=== PATIENT | female | born 1995 | race Two or more races ===

== ENCOUNTER 2021-12-18 16:30 | Observation (INO) | payer MEDICAID, OTHER ==
[~2021-12-18] VITALS: Ht 152.4 cm; Wt 52.2 kg
[2021-12-18] MEDS ORDERED: PREN-96 PO (17:13)
[2021-12-18] MEDS ORDERED: OMEP20TA PO (17:14)
[2021-12-18] MEDS ORDERED: NITR-87 PO (18:11)
== END 2021-12-18 18:34 | disposition home or self-care (01) ==
LOC: LDRP 16:30
PROVIDERS: ADMIT Obstetrics & Gynecology; ATTEND Obstetrics & Gynecology
DX: O62.9 Abnormality of forces of labor, unspecified (principal); O26.892 Other specified pregnancy related conditions, second trimester; R10.2 Pelvic and perineal pain; R10.9 Unspecified abdominal pain; N89.8 Other specified noninflammatory disorders of vagina; O21.2 Late vomiting of pregnancy; Z3A.22 22 weeks gestation of pregnancy
CPT/HCPCS: 59025; 81002; 94760; G0378

== ENCOUNTER 2022-01-07 11:00 | Observation (INO) | payer MEDICAID ==
[~2022-01-07 11:00] MED LIST: NITR-87 PO; OMEP20TA PO; PREN-96 PO
== END 2022-01-07 12:45 | disposition home or self-care (01) ==
LOC: UNDOADMOB 11:00 → LDRP 11:00 → UNDODISOB 12:45
PROVIDERS: ADMIT Obstetrics & Gynecology; ATTEND Obstetrics & Gynecology
DX: O36.8120 Decreased fetal movements, second trimester, not applicable or unspecified (principal); O42.912 Preterm premature rupture of membranes, unspecified as to length of time between rupture and onset of labor, second trimester; Z3A.25 25 weeks gestation of pregnancy
CPT/HCPCS: 59025; 81002; 84112; 94760; G0378; Q0114

== ENCOUNTER 2022-02-22 15:00 | Observation (INO) | payer MEDICAID | END 2022-02-22 16:33 | disposition home or self-care (01) | LOC: UNDOADMOB 15:00 → LDRP 15:00 | PROVIDERS: ADMIT Obstetrics & Gynecology; ATTEND Obstetrics & Gynecology | DX: O36.8130 Decreased fetal movements, third trimester, not applicable or unspecified (principal); O26.893 Other specified pregnancy related conditions, third trimester; R10.9 Unspecified abdominal pain; R11.0 Nausea; O42.913 Preterm premature rupture of membranes, unspecified as to length of time between rupture and onset of labor, third trimester; O34.63 Maternal care for abnormality of vagina, third trimester; N89.8 Other specified noninflammatory disorders of vagina; Z3A.32 32 weeks gestation of pregnancy | CPT/HCPCS: 59025; 76805; 81002; 94760; G0378 ==

== ENCOUNTER 2022-03-03 10:17 | Observation (INO) | payer MEDICAID ==
[~2022-03-03] VITALS: Ht 152.4 cm; Wt 57.2 kg
[2022-03-03] MEDS ORDERED: MICO1KIT6 VA (12:47)
[2022-03-03 13:14] LABS: Alcohol, Urine < 3.0 mg/dL (0-10); Amphetamine Screen, Urine NEGATIVE (NEGATIVE); Barbiturate Scree,Urine NEGATIVE (NEGATIVE); Benzodiazephine Screen, Urine NEGATIVE (NEGATIVE); Cannabinoid Screen, Urine POSITIVE (NEGATIVE); Cocaine Screen, Urine NEGATIVE (NEGATIVE); Phencyclidine Screen, Urine NEGATIVE (NEGATIVE)
[2022-03-03 13:19] LABS: Urine Bacteria FEW /hpf (None Seen); Urine Blood Negative /uL (Negative); Urine Specific Gravity 1.019 (1.001-1.035); Urine WBC 3 /hpf (0 - 5)
[2022-03-03 13:22] LABS: Opiate Scree,Urine NEGATIVE (NEGATIVE)
== END 2022-03-03 13:13 | disposition home or self-care (01) ==
LOC: UNDOADMOB 10:17 → LDRP 10:17
PROVIDERS: ADMIT Obstetrics & Gynecology; ATTEND Obstetrics & Gynecology
DX: O26.853 Spotting complicating pregnancy, third trimester (principal); Z20.822 Contact with and (suspected) exposure to COVID-19; O26.893 Other specified pregnancy related conditions, third trimester; R10.2 Pelvic and perineal pain; O21.2 Late vomiting of pregnancy; O62.9 Abnormality of forces of labor, unspecified; Z3A.33 33 weeks gestation of pregnancy; Z79.899 Other long term (current) drug therapy
CPT/HCPCS: 36415; 59025; 76805; 80307; 81001; 81002; 87086; 87426; 94760; G0378

== ENCOUNTER 2022-09-12 10:16 | Emergency (ER) | payer MEDICAID ==
[~2022-09-12] VITALS: Ht 152.4 cm; Wt 50.6 kg
[~2022-09-12 10:16] MED LIST changes: +MICO1KIT6 VA; -NITR-87 PO; -OMEP20TA PO
[2022-09-12 11:09] LABS: Basophils # (auto) 0.1 10 ^3/uL (0-0.2); Basophils % (auto) 0.9 % (0.0-2.0); Eosinophils # (auto) 0.1 10 ^3/uL (0-0.8); Eosinophils % (auto) 0.8 % (0.0-7.0); Hematocrit 42.6 % (36.0-46.0); Hemoglobin 14.7 g/dL (12.2-16.2); Lymphocytes % (auto) 29.4 % (10.0-50.0); Mean Corpuscular Hemoglobin 31.6 pg (28.0-32.0); Mean Corpuscular Hgb Conc. 34.5 g/dL (32.0-36.0); Mean Corpuscular Volume 91.6 fL (80.0-100.0); Monocytes # (auto) 0.5 10 ^3/uL (0-1.3); Neutrophils # (auto) 4.1 10 ^3/uL (1.6-8.6); Neutrophils % (auto) 61.9 % (37.0-80.0); Nucleated Red Blood Cells % 0.1 %; Red Blood Cells 4.65 10^6/uL (4.0-5.20); Red Cell Distribution Width 13.6 % (11.8-14.3); White Blood Cell 6.7 10^3/uL (4.4-10.8)
[2022-09-12 12:23] LABS: Urine Blood 3+ /uL (Negative); Urine Specific Gravity 1.028 (1.001-1.035)
[2022-09-12] MEDS ORDERED: ACETAMINOPHEN 500 MG TAB PO ONE (16:00)
[2022-09-12 16:40] VITALS: BP 130/90
== END 2022-09-12 16:47 | disposition home or self-care (01) ==
LOC: ER 10:16
DX: N93.8 Other specified abnormal uterine and vaginal bleeding (principal); R10.2 Pelvic and perineal pain; Z98.890 Other specified postprocedural states
CPT/HCPCS: 36415; 76801; 76817; 81003; 84702; 85025

== ENCOUNTER 2022-09-24 17:02 | Emergency (ER) | payer MEDICAID ==
[~2022-09-24] VITALS: Ht 152.4 cm; Wt 50.8 kg
[2022-09-24 17:15] VITALS: BP 124/90
[2022-09-24 18:29] LABS: Urine Bacteria NONE SEEN /hpf (None Seen); Urine Blood 1+ /uL (Negative); Urine Specific Gravity 1.001 (1.001-1.035); Urine WBC <1 /hpf (0 - 5)
[2022-09-24 18:36] LABS: Basophils # (auto) 0.1 10 ^3/uL (0-0.2); Basophils % (auto) 0.7 % (0.0-2.0); Eosinophils # (auto) 0.1 10 ^3/uL (0-0.8); Eosinophils % (auto) 0.8 % (0.0-7.0); Hematocrit 42.5 % (36.0-46.0); Hemoglobin 14.3 g/dL (12.2-16.2); Lymphocytes # (auto) 2.1 10 ^3/uL (0.4-5.4); Lymphocytes % (auto) 28.3 % (10.0-50.0); Mean Corpuscular Hemoglobin 30.8 pg (28.0-32.0); Mean Corpuscular Hgb Conc. 33.7 g/dL (32.0-36.0); Mean Corpuscular Volume 91.3 fL (80.0-100.0); Monocytes # (auto) 0.5 10 ^3/uL (0-1.3); Monocytes % (auto) 7.4 % (0.0-12.0); Neutrophils # (auto) 4.6 10 ^3/uL (1.6-8.6); Neutrophils % (auto) 62.8 % (37.0-80.0); Nucleated Red Blood Cells % 0.1 %; Red Blood Cells 4.66 10^6/uL (4.0-5.20); Red Cell Distribution Width 13.1 % (11.8-14.3); White Blood Cell 7.4 10^3/uL (4.4-10.8)
[2022-09-24 19:02] LABS: Albumin 4.3 g/dL (3.4-5.0); Potassium 3.8 mmol/L (3.5-5.1)
[2022-09-24 19:11] LABS: BUN/Creatinine Ratio 17.1; Bilirubin, Total 0.5 mg/dL (0.2-1.0)
== END 2022-09-24 21:00 | disposition home or self-care (01) ==
LOC: ER 17:05
DX: O03.9 Complete or unspecified spontaneous abortion without complication (principal); R10.2 Pelvic and perineal pain; Z3A.01 Less than 8 weeks gestation of pregnancy
CPT/HCPCS: 36415; 76801; 76817; 80053; 81001; 84702; 85025

== ENCOUNTER → 2023-05-23 | Outpatient (CLI) | payer MEDICAID ==
[2023-05-23 11:07] LABS: Basophils # (auto) 0.1 10 ^3/uL (0-0.2); Basophils % (auto) 0.6 % (0.0-2.0); Eosinophils # (auto) 0.1 10 ^3/uL (0-0.8); Eosinophils % (auto) 0.7 % (0.0-7.0); Hematocrit 30.7 % (36.0-46.0); Lymphocytes # (auto) 1.9 10 ^3/uL (0.4-5.4); Lymphocytes % (auto) 21.3 % (10.0-50.0); Mean Corpuscular Hemoglobin 28.3 pg (28.0-32.0); Mean Corpuscular Hgb Conc. 32.7 g/dL (32.0-36.0); Mean Corpuscular Volume 86.5 fL (80.0-100.0); Monocytes # (auto) 0.5 10 ^3/uL (0-1.3); Monocytes % (auto) 5.9 % (0.0-12.0); Neutrophils # (auto) 6.3 10 ^3/uL (1.6-8.6); Neutrophils % (auto) 71.5 % (37.0-80.0); Nucleated Red Blood Cells % 0.1 %; Red Blood Cells 3.55 10^6/uL (4.0-5.20); Red Cell Distribution Width 14.2 % (11.8-14.3); White Blood Cell 8.8 10^3/uL (4.4-10.8)
[2023-05-23 11:38] LABS: Amphetamine Screen, Urine Neg (NEGATIVE)
[2023-05-23 11:39] LABS: Barbiturate Scree,Urine Neg (NEGATIVE)
[2023-05-23 11:41] LABS: Cocaine Screen, Urine Neg (NEGATIVE); Opiate Scree,Urine Neg (NEGATIVE)
[2023-05-23 11:42] LABS: Benzodiazephine Screen, Urine Neg (NEGATIVE); Cannabinoid Screen, Urine Pos (NEGATIVE); Phencyclidine Screen, Urine Neg (NEGATIVE)
[2023-05-24 07:06] LABS: RPR Non Reactive (Non Reactive)
[2023-05-24 10:06] LABS: Treponema Pallidum Ab LC Non Reactive (Non Reactive)
[2023-05-24 23:06] LABS: Chlamydia Trachomatis, NAA Negative (Negative); Neisseria gonorrhoeae, NAA Negative (Negative)
== END | disposition home or self-care (01) ==
LOC: LAB 10:09
PROVIDERS: ATTEND Obstetrics & Gynecology
DX: Z34.80 Encounter for supervision of other normal pregnancy, unspecified trimester (principal); Z3A.00 Weeks of gestation of pregnancy not specified
CPT/HCPCS: 36415; 80307; 83036; 84112; 84702; 85025; 86592; 86703; 86762; 86850; 86900; 86901; 87086; 87340

== ENCOUNTER 2023-05-30 12:30 | Observation (INO) | payer MEDICAID ==
[2023-05-30 13:18] LABS: Basophils # (auto) 0 10 ^3/uL (0-0.2); Basophils % (auto) 0.5 % (0.0-2.0); Eosinophils # (auto) 0.1 10 ^3/uL (0-0.8); Eosinophils % (auto) 0.6 % (0.0-7.0); Hematocrit 29.8 % (36.0-46.0); Hemoglobin 9.8 g/dL (12.2-16.2); Lymphocytes # (auto) 1.8 10 ^3/uL (0.4-5.4); Lymphocytes % (auto) 18.2 % (10.0-50.0); Mean Corpuscular Hemoglobin 28.3 pg (28.0-32.0); Mean Corpuscular Hgb Conc. 32.9 g/dL (32.0-36.0); Monocytes # (auto) 0.6 10 ^3/uL (0-1.3); Monocytes % (auto) 5.8 % (0.0-12.0); Neutrophils # (auto) 7.6 10 ^3/uL (1.6-8.6); Neutrophils % (auto) 74.9 % (37.0-80.0); Red Blood Cells 3.47 10^6/uL (4.0-5.20); Red Cell Distribution Width 14.4 % (11.8-14.3); White Blood Cell 10.1 10^3/uL (4.4-10.8)
[2023-05-30 13:35] LABS: Partial Thromboplastin Time 26.9 SEC (24.5-34.5); Prothrombin Time 10.5 sec (9.3-11.8)
[2023-05-30 13:40] LABS: Albumin 3.9 g/dL (3.2-4.8); Alkaline Phosphatase 201 U/L (46-116); Anion Gap 7 (5-15); Aspartate Aminotransferase 15 U/L (13-40); BUN/Creatinine Ratio 11.5 (10.0-20.0); Blood Urea Nitrogen 7 mg/dL (9-23); Calcium 8.8 mg/dL (8.7-10.4); Carbon Dioxide 22 mmol/L (20-30); Chloride 106 mmol/L (98-107); Glucose 96 mg/dL (74-106); Potassium 3.6 mmol/L (3.5-5.1); Sodium 135 mmol/L (136-145); Uric Acid 5.2 mg/dL (3.1-7.8)
[2023-05-30 13:41] LABS: Bilirubin, Total 0.4 mg/dL (0.2-1.0); Total Protein 6.9 g/dL (5.7-8.2)
[2023-05-30 13:44] LABS: Alanine Aminotransferase < 9 U/L (7-40)
[2023-05-30 13:59] LABS: Urine Bacteria FEW /hpf (None Seen); Urine Blood Negative /uL (Negative); Urine Clarity Clear (Clear); Urine Color Yellow (Yellow); Urine Mucus FEW (None Seen); Urine Protein, UAD 1+ (Negative); Urine Specific Gravity 1.022 (1.001-1.035); Urine Urobilinogen Normal (Negative); Urine WBC 2 /hpf (0 - 5); Urine pH 6.5 (5.0-8.0)
[2023-05-30 14:13] LABS: Protein, Urine 57.1 mg/dL (0.0-11.9)
[2023-05-30 14:14] LABS: Amphetamine Screen, Urine Neg (NEGATIVE)
[2023-05-30 14:15] LABS: Barbiturate Scree,Urine Neg (NEGATIVE); Benzodiazephine Screen, Urine Neg (NEGATIVE); Cannabinoid Screen, Urine Pos (NEGATIVE); Cocaine Screen, Urine Neg (NEGATIVE); Creatinine, Urine 113.02 mg/dL (30.0-125.0); Opiate Scree,Urine Neg (NEGATIVE); Phencyclidine Screen, Urine Neg (NEGATIVE); Urine Protein/Creatinine Ratio 0.51
[2023-05-30] MEDS ORDERED: FER325T PO (15:25)
[2023-05-30] MEDS ORDERED: DOCU-94 PO (15:25)
[2023-05-31 06:06] LABS: Rubella Antibodies, IgG 4.59 index (Immune >0.99)
[2023-05-31 08:06] LABS: RPR Non Reactive (Non Reactive)
== END 2023-05-30 15:43 | disposition home or self-care (01) ==
LOC: LDRP 12:30 → UNDOADMOB 12:30 → LDRP 12:47
PROVIDERS: ADMIT Obstetrics & Gynecology; ATTEND Obstetrics & Gynecology
DX: O12.13 Gestational proteinuria, third trimester (principal); O99.013 Anemia complicating pregnancy, third trimester; O62.9 Abnormality of forces of labor, unspecified; O26.893 Other specified pregnancy related conditions, third trimester; D50.9 Iron deficiency anemia, unspecified; R10.30 Lower abdominal pain, unspecified; Z79.899 Other long term (current) drug therapy; Z3A.36 36 weeks gestation of pregnancy
CPT/HCPCS: 36415; 59025; 76805; 76818; 80053; 80307; 81001; 81002; 82570; 84156; 84550; 85025; 85610; 85730; 86592; 86703; 86762; 87340; 94760; G0378

== ENCOUNTER 2023-06-01 10:32 | Observation (INO) | payer MEDICAID ==
[~2023-06-01 10:32] MED LIST changes: +DOCU-94 PO; +FER325T PO; -MICO1KIT6 VA
[2023-06-01 11:19] LABS: Protein, Urine < 6.0 mg/dL (0.0-11.9)
[2023-06-01 11:21] LABS: Urine Bacteria NONE SEEN /hpf (None Seen); Urine Blood Negative /uL (Negative); Urine Clarity Clear (Clear); Urine Protein, UAD 1+ (Negative); Urine Specific Gravity 1.009 (1.001-1.035); Urine Urobilinogen Normal (Negative); Urine WBC 1 /hpf (0 - 5); Urine pH 6.5 (5.0-8.0)
[2023-06-01 11:22] LABS: Protein, Urine 80.6 mg/dL (0.0-11.9)
[2023-06-01 11:23] LABS: Urine Color STRAW (Yellow)
[2023-06-01 11:25] LABS: Creatinine, Urine 57.79 mg/dL (30.0-125.0); Urine Protein/Creatinine Ratio 1.39
[2023-06-01 13:10] LABS: Urine Total Volume, 24 Hours 2150 mL
== END 2023-06-01 13:44 | disposition home or self-care (01) ==
LOC: LDRP 10:32 → UNDOADMOB 10:32 → LDRP 10:43
PROVIDERS: ADMIT Obstetrics & Gynecology; ATTEND Obstetrics & Gynecology
DX: O13.3 Gestational [pregnancy-induced] hypertension without significant proteinuria, third trimester (principal); O62.9 Abnormality of forces of labor, unspecified; Z3A.36 36 weeks gestation of pregnancy
CPT/HCPCS: 59025; 76818; 81001; 81002; 82570; 84156; 94760; G0378

== ENCOUNTER 2023-06-05 08:06 | Observation (INO) | payer MEDICAID ==
[2023-06-05 10:08] LABS: Urine Bacteria FEW /hpf (None Seen); Urine Blood Negative /uL (Negative); Urine Clarity Clear (Clear); Urine Color Colorless (Yellow); Urine Protein, UAD 1+ (Negative); Urine Specific Gravity 1.015 (1.001-1.035); Urine Urobilinogen Normal (Negative); Urine WBC 1 /hpf (0 - 5)
[2023-06-05 11:03] LABS: Protein, Urine 46.7 mg/dL (0.0-11.9)
[2023-06-05 11:06] LABS: Creatinine, Urine 60.46 mg/dL (30.0-125.0); Urine Protein/Creatinine Ratio 0.77
[2023-06-05 11:40] LABS: Fern Testing Negative
== END 2023-06-05 12:16 | disposition home or self-care (01) ==
LOC: LDRP 09:28
PROVIDERS: ADMIT Obstetrics & Gynecology; ATTEND Obstetrics & Gynecology
DX: O12.13 Gestational proteinuria, third trimester (principal); O26.893 Other specified pregnancy related conditions, third trimester; N89.8 Other specified noninflammatory disorders of vagina; Z3A.37 37 weeks gestation of pregnancy
CPT/HCPCS: 59025; 76818; 81001; 81002; 82570; 84112; 84156; G0378; Q0114

== ENCOUNTER 2023-06-07 09:56 | Inpatient (IN) | payer MEDICAID ==
[~2023-06-07] VITALS: Ht 152.4 cm; Wt 57.2 kg
[2023-06-07] MEDS ORDERED: LACTATED RINGER'S 1,000 ML IV SCH (11:15)
[2023-06-07] MEDS ORDERED: PROMETHAZINE HCL 25 MG/ML 1ML IV PRN (11:15)
[2023-06-07] MEDS ORDERED: WITCH HAZEL-GLYCERIN PAD TOP PRN (11:15)
[2023-06-07] MEDS ORDERED: LIDOCAINE 2%HCL (LOCAL ANESTH.) INJ 20ML MDV IJ PRN (11:15)
[2023-06-07] MEDS ORDERED: TERBUTALINE SULFATE 1 MG/ML 1ML VIAL SC PRN (11:15)
[2023-06-07] MEDS ORDERED: BUTORPHANOL TARTRATE 2 MG/1 ML VIAL IV PRN ×2 (11:15)
[2023-06-07] MEDS ORDERED: PHISODERM TOP SOLN 240ML BTL TOP PRN (11:15)
[2023-06-07] MEDS ORDERED: LACT. RINGERS/OXYTOCIN 20UNITS 1,000 ML IV SCH (11:15)
[2023-06-07] MEDS ORDERED: LACT. RINGERS/OXYTOCIN 20UNITS 500 ML IV ONE ×2 (11:15→11:45)
[2023-06-07] MEDS ORDERED: DERMOPLAST 60ML BOTTLE TOP PRN (11:15)
[2023-06-07 11:29] LABS: Basophils # (auto) 0 10 ^3/uL (0-0.2); Basophils % (auto) 0.3 % (0.0-2.0); Eosinophils # (auto) 0 10 ^3/uL (0-0.8); Eosinophils % (auto) 0.3 % (0.0-7.0); Hematocrit 31.2 % (36.0-46.0); Hemoglobin 10.3 g/dL (12.2-16.2); Lymphocytes # (auto) 2.3 10 ^3/uL (0.4-5.4); Mean Corpuscular Hemoglobin 27.8 pg (28.0-32.0); Mean Corpuscular Volume 84.2 fL (80.0-100.0); Monocytes # (auto) 0.6 10 ^3/uL (0-1.3); Monocytes % (auto) 5.3 % (0.0-12.0); Neutrophils # (auto) 7.8 10 ^3/uL (1.6-8.6); Neutrophils % (auto) 73.1 % (37.0-80.0); Red Blood Cells 3.71 10^6/uL (4.0-5.20); Red Cell Distribution Width 14.7 % (11.8-14.3); White Blood Cell 10.7 10^3/uL (4.4-10.8)
[2023-06-07 11:47] LABS: Alanine Aminotransferase 11 U/L (7-40); Alkaline Phosphatase 257 U/L (46-116); Anion Gap 9 (5-15); Aspartate Aminotransferase 26 U/L (13-40); Calcium 8.5 mg/dL (8.7-10.4); Carbon Dioxide 22 mmol/L (20-30); Chloride 105 mmol/L (98-107); Glucose 79 mg/dL (74-106); Potassium 3.3 mmol/L (3.5-5.1); Sodium 136 mmol/L (136-145); Uric Acid 5.2 mg/dL (3.1-7.8)
[2023-06-07 11:48] LABS: Albumin 4.1 g/dL (3.2-4.8); Bilirubin, Total 0.5 mg/dL (0.2-1.0); Total Protein 7.1 g/dL (5.7-8.2)
[2023-06-07 11:49] LABS: INR 0.98 (0.9-1.15); Partial Thromboplastin Time 28.5 SEC (24.5-34.5); Prothrombin Time 10.3 sec (9.3-11.8)
[2023-06-07 11:56] LABS: BUN/Creatinine Ratio 8.2 (10.0-20.0); Blood Urea Nitrogen < 5 mg/dL (9-23)
[2023-06-07 11:56] LABS: Urine Bacteria FEW /hpf (None Seen); Urine Blood Negative /uL (Negative); Urine Clarity Clear (Clear); Urine Color Yellow (Yellow); Urine Mucus FEW (None Seen); Urine Protein, UAD 3+ (Negative); Urine Specific Gravity 1.016 (1.001-1.035); Urine Urobilinogen Normal (Negative); Urine WBC 2 /hpf (0 - 5); Urine pH 6.5 (5.0-8.0)
[2023-06-07 12:00] LABS: Fern Testing Negative
[2023-06-07 12:06] LABS: Amphetamine Screen, Urine Neg (NEGATIVE); Barbiturate Scree,Urine Neg (NEGATIVE); Benzodiazephine Screen, Urine Neg (NEGATIVE); Cocaine Screen, Urine Neg (NEGATIVE)
[2023-06-07 12:07] LABS: Cannabinoid Screen, Urine Pos (NEGATIVE); Opiate Scree,Urine Neg (NEGATIVE); Phencyclidine Screen, Urine Neg (NEGATIVE)
[2023-06-07 12:08] LABS: Creatinine, Urine 97.29 mg/dL (30.0-125.0)
[2023-06-07 12:12] LABS: Protein, Urine 447.4 mg/dL (0.0-11.9); Urine Protein/Creatinine Ratio 4.6
[2023-06-07] MEDS ORDERED: LACTATED RINGER'S 1,000 ML IV ONE (12:45)
[2023-06-07] MEDS ORDERED: ROPIVACAINE HCL 200 ML EPI SCH (12:45)
[2023-06-07] MEDS ORDERED: NALOXONE HCL 0.4 MG/ML VIAL IV ONE (12:45)
[2023-06-07] MEDS ORDERED: ePHEDrine SULFATE 50 MG/ML AMP IV ONE (12:45)
[2023-06-07] MEDS ORDERED: ROPIVACAINE HCL 100 ML ONE (12:55)
[2023-06-07] MEDS ORDERED: ONDANSETRON ODT 4 MG TAB PO PRN ×2 (16:00→17:30)
[2023-06-07] MEDS ORDERED: ACETAMINOPHEN 325 MG TAB PO PRN (16:00)
[2023-06-07] MEDS ORDERED: ONDANSETRON HCL 4 MG/2 ML VIAL IV PRN (17:30)
[2023-06-07 18:35] VITALS: BP 115/74; PULSE 78; RESP 18; TEMP 97.9; O2SAT 96
[2023-06-07] MEDS: IBUPROFEN 600 MG TAB PO PRN (18:36)
[2023-06-07 22:50] VITALS: BP 93/50; PULSE 78; RESP 18; TEMP 97.9; O2SAT 96
[2023-06-08] MEDS: IBUPROFEN 600 MG TAB PO PRN ×2 (01:57→11:02)
[2023-06-08 02:00] VITALS: BP 101/65; PULSE 70; RESP 18; TEMP 97.6; O2SAT 97
[2023-06-08 07:00] VITALS: BP 112/76; PULSE 81; RESP 16; TEMP 97.6; O2SAT 97
[2023-06-08 07:06] LABS: RPR Non Reactive (Non Reactive)
[2023-06-08 11:00] VITALS: BP 104/73; PULSE 85; RESP 17; TEMP 97.3; O2SAT 95
[2023-06-12 19:06] LABS: Treponema pallidum Ab (FTA-Ab) Non Reactive (Non Reactive)
== END 2023-06-08 14:47 | disposition home or self-care (01) | DRG 560 ==
LOC: UNDOADMOB 09:56 → LDRP 09:56 → OBSVTOIN 10:57
PROVIDERS: ADMIT Obstetrics & Gynecology; ATTEND Obstetrics & Gynecology
PROC: 10E0XZZ Delivery of Products of Conception, External Approach (ICD-10-PCS; principal; 2023-06-07)
PROC: 3E0R3BZ Introduction of Anesthetic Agent into Spinal Canal, Percutaneous Approach (ICD-10-PCS; 2023-06-07)
PROC: 00HU33Z Insertion of Infusion Device into Spinal Canal, Percutaneous Approach (ICD-10-PCS; 2023-06-07)
DX: O60.14X0 Preterm labor third trimester with preterm delivery third trimester, not applicable or unspecified (principal); Z37.0 Single live birth; O13.4 Gestational [pregnancy-induced] hypertension without significant proteinuria, complicating childbirth; Z3A.37 37 weeks gestation of pregnancy
CPT/HCPCS: 36415; 59025; 59409; 62282; 76815; 80053; 80307; 81001; 81002; 82570; 84112; 84156; 84550; 85025; 85610; 85730; 86592; 86850; 86900; 86901; 87340; 94760; 94762; 96360; 96361; 96365; 96366; G0378; J2590